=== PATIENT | female | born 1985 | race Asian ===

== ENCOUNTER 2019-06-17 20:00 | Emergency (ER) | payer SELFPAY ==
--- NOTE | 2019-06-17 20:38 | RAD ---
3 views right hand: 06/17/2019 COMPARISON: None HISTORY: Injury, trauma, pain FINDINGS: No fracture or dislocation. No radiopaque foreign body or subcutaneous gas. IMPRESSION: No acute findings.
--- NOTE | 2019-06-17 20:43 | RAD ---
Portable frontal chest radiograph: 06/17/2019 COMPARISON: None HISTORY: Trauma, pain FINDINGS: Lungs are clear. Heart and mediastinal contours appear within normal limits. IMPRESSION: No acute findings.
--- NOTE | 2019-06-17 20:57 | CT ---
Head CT without contrast 06/17/2019: Comparison: None HISTORY: Trauma TECHNIQUE: Axial CT imaging at 5 mm intervals from vertex through skull base without contrast FINDINGS: Incidental note is made of a cavum septum lucidum. The imaged paranasal sinuses and mastoid air cells are well-aerated. No displaced calvarial fracture. No intracranial hemorrhage, midline shift, mass effect, or ventricular enlargement. IMPRESSION: No acute findings.
--- NOTE | 2019-06-17 21:07 | CT ---
CT of thecervical spine: 06/17/2019 COMPARISON:None available HISTORY:Trauma, pain TECHNIQUE: Serial axial CT imaging at2.5 mm intervals from theskull base through the lung apices with out contrast. Coronal and sagittal reformatted imaging obtained Findings:The visualized lung apices are unremarkable. The C1 ring is intact. The occipital condyles, the dens, and the C1-2 articulation appear within normal limits. The craniocervical junction, the atlantoaxial interspace, the C1-2 articulation, and the cervicothora cic junction appear intact. Cervical vertebral body height and alignment appears within normal limits. No prevertebral soft tissue swelling. No displaced fracture or evidence of dislocation. Impression:No acute osseous abnormality.
[2019-06-17] MEDS ORDERED: Acetaminophen 500 MG TAB ONE (21:24)
== END 2019-06-17 21:48 | disposition home or self-care (01) ==
LOC: ERS 20:00
DX: S60.221A Contusion of right hand, initial encounter (principal); S40.019A Contusion of unspecified shoulder, initial encounter; M54.2 Cervicalgia; V89.2XXA Person injured in unspecified motor-vehicle accident, traffic, initial encounter
CPT/HCPCS: 70450; 71045; 72125